=== PATIENT | female | born 1930 | race Caucasian/White ===

== ENCOUNTER 2017-09-17 18:15 | Emergency (ER) | payer MEDICARE, OTHER ==
[~2017-09-17] VITALS: Ht 152.4 cm; Wt 54.4 kg
[2017-09-17 18:15] VITALS: BP 192/91
[~2017-09-17 18:15] MED LIST: Lidocaine 1% 10mg/ml/Epi 0.005mg/ml 30ml vial INJ ONE
[2017-09-17] MEDS ORDERED: Acetaminophen 500mg (ES) tab ORAL ONE (18:30)
[2017-09-17 19:30] VITALS: BP 139/53
[2017-09-17 19:36] LABS: BASOPHILS % (AUTO) 0.9 % (0.0-2.0); EOSINOPHILS % (AUTO) 2.1 % (0.0-3.0); HEMATOCRIT 37.7 % (37.0-47.0); HEMOGLOBIN 12.1 G/DL (12.0-16.0); LYMPHOCYTES % (AUTO) 21.3 % (20.0-45.0); MEAN CORPUSCULAR VOLUME 83 FL (80-99); MONOCYTES % (AUTO) 9.8 % (1.0-10.0); PLATELET COUNT 243 K/UL (150-450); RED BLOOD COUNT 4.56 M/UL (4.20-5.40); RED CELL DISTRIBUTION WIDTH 13.7 % (11.6-14.8); WHITE BLOOD COUNT 8.3 K/UL (4.8-10.8)
[2017-09-17] MEDS ORDERED: Hydrogen Peroxide 473ml Bottle TOPIC ONE ×2 (19:41→20:00)
[2017-09-17 19:43] LABS: ANION GAP 6 mmol/L (5-15); BLOOD UREA NITROGEN 25 mg/dL (7-18); CALCIUM 9.2 MG/DL (8.5-10.1); CARBON DIOXIDE 29 MMOL/L (21-32); CHLORIDE 104 MMOL/L (98-107); CREATININE 1.1 MG/DL (0.55-1.30); POTASSIUM 4.7 MMOL/L (3.5-5.1); SODIUM 139 MMOL/L (136-145)
[2017-09-17 19:48] LABS: ALANINE AMINOTRANSFERASE 22 U/L (12-78); ALBUMIN 3.6 G/DL (3.4-5.0); ALKALINE PHOSPHATASE 103 U/L (46-116); ASPARTATE AMINO TRANSFERASE 18 U/L (15-37); BILIRUBIN,TOTAL 0.2 MG/DL (0.2-1.0)
--- NOTE | 2017-09-17 20:23 | Emergency Room Report ---
History of Present Illness General Chief Complaint: Head Injury Source: Patient, EMS Present Illness HPI Patient is an 87-year-old female who presented after increased pain to her head after a fall. Patient had the mechanical fall from standing position. Patient reports having fallen in recalling events. The patient was complaining of pain to her occiput as well as to her right knee and to her left elbow.The patient denies taking any blood thinners. Injury occurred just prior to arrival. Allergies: Coded Allergies: No Known Allergies (Unverified , 09/17/17) Patient History Past Medical History: HTN Reviewed Nursing Documentation: PMH: Agreed; PSxH: Agreed Nursing Documentation-PMH Past Medical History: No Stated History Review of Systems All Other Systems: negative except mentioned in HPI Physical Exam Vital Signs Date Time Temp Pulse Resp B/P (MAP) Pulse Ox O2 Delivery O2 Flow Rate FiO2 09/17/17 18:01 98.2 90 20 150/100 99 Room Air 98.2 Sp02 EP Interpretation: reviewed, normal General Appearance: normal inspection, alert, no apparent distress, GCS 15 Head: normocephalic, other - large occipital hematoma with pulsatile bleeding Eyes: normal eye exam, PERRL, EOMI, lids + conjunctiva normal, no hyphema, no racoon eyes ENT: normal ENT inspection, TMs + canals normal, oropharynx normal, no casiano signs Neck: trach midline, no bony tend, full range of motion without pain Respiratory: effort normal, no retractions, clear to auscultation, chest symmetrical, palpation of chest normal, speaking in full sentences Cardiovascular: regular rate, rhythm, no JVD Cardiovascular #2: 2+ radial (R), 2+ radial (L), 2+ dorsalis pedis (R), 2+ dorsalis pedis (L) Gastrointestinal: normal inspection, non-tender, non-distended, no rebound/ guarding, normal bowel sounds Genitourinary: normal inspection Musculoskeletal: normal inspection, normal ROM, non-tender, back normal Skin: normal palpation, other - left elbow abrasion and laceration Lymphatic: normal inspection Neurologic: oriented x3, sensory intact, motor strength/tone normal, normal speech Psychiatric: normal inspection, memory normal, mood normal, no suicidal/ homicidal ideation Medical Decision Making ER Course The patient presented after a fall.Differential diagnosis included was not limited to neck fracture, CVA, close head injury, syncopal episode, basilar ischemia. Labs Test 09/17/17 19:00 White Blood Count 8.3 K/UL (4.8-10.8) Red Blood Count 4.56 M/UL (4.20-5.40) Hemoglobin 12.1 G/DL (12.0-16.0) Hematocrit 37.7 % (37.0-47.0) Mean Corpuscular Volume 83 FL (80-99) Mean Corpuscular Hemoglobin 26.6 PG (27.0-31.0) Mean Corpuscular Hemoglobin Concent 32.2 G/DL (32.0-36.0) Red Cell Distribution Width 13.7 % (11.6-14.8) Platelet Count 243 K/UL (150-450) Mean Platelet Volume 6.0 FL (6.5-10.1) Neutrophils (%) (Auto) 66.0 % (45.0-75.0) Lymphocytes (%) (Auto) 21.3 % (20.0-45.0) Monocytes (%) (Auto) 9.8 % (1.0-10.0) Eosinophils (%) (Auto) 2.1 % (0.0-3.0) Basophils (%) (Auto) 0.9 % (0.0-2.0) Prothrombin Time 10.0 SEC (9.30-11.50) Prothromb Time International Ratio 1.0 (0.9-1.1) Activated Partial Thromboplast Time 25 SEC (23-33) Sodium Level 139 MMOL/L (136-145) Potassium Level 4.7 MMOL/L (3.5-5.1) Chloride Level 104 MMOL/L (98-107) Carbon Dioxide Level 29 MMOL/L (21-32) Anion Gap 6 mmol/L (5-15) Blood Urea Nitrogen 25 mg/dL (7-18) Creatinine 1.1 MG/DL (0.55-1.30) Estimat Glomerular Filtration Rate mL/min (>60) Glucose Level 109 MG/DL (74-106) Calcium Level 9.2 MG/DL (8.5-10.1) Total Bilirubin 0.2 MG/DL (0.2-1.0) Aspartate Amino Transf (AST/SGOT) 18 U/L (15-37) Alanine Aminotransferase (ALT/SGPT) 22 U/L (12-78) Alkaline Phosphatase 103 U/L (46-116) Troponin I 0.000 ng/mL (0.000-0.056) Total Protein 7.3 G/DL (6.4-8.2) Albumin 3.6 G/DL (3.4-5.0) Globulin 3.7 g/dL Albumin/Globulin Ratio 1.0 (1.0-2.7) Last Vital Signs Date Time Temp Pulse Resp B/P (MAP) Pulse Ox O2 Delivery O2 Flow Rate FiO2 09/17/17 18:27 98.2 09/17/17 18:15 79 20 192/91 99 Room Air Scripts No Active Prescriptions or Reported Meds Guille Langford MD September 17, 2017 20:23
--- NOTE | 2017-09-17 20:49 | Consultation ---
History of Present Illness General Date patient seen: September 17, 2017 Chief Complaint: Head Injury Reason for Consultation: bleeding head laceration Present Illness HPI 87F at home walking outside when she lost balance with walker and fell. hit occiput and came to ED for evaluation. no LOC per patient and family. bleeding laceration with hematoma noted in occiput. surgery called to assist with hemostasis Allergies: Coded Allergies: No Known Allergies (Unverified , 09/17/17) Medication History No Active Prescriptions or Reported Meds Patient History History Provided By: Patient, Family Member, EMS, PMD Healthcare decision maker Resuscitation status Advanced Directive on File Past Medical/Surgical History Past Medical/Surgical History: (1) Laceration of occipital scalp (2) Fall (3) Acute head injury Review of Systems All Other Systems: negative except mentioned in HPI Physical Exam General Appearance: no apparent distress Lines, tubes and drains: peripheral HEENT: other - blood/clots around scalp in hair. 1.5cm laceation with active bleeding noted. moderate hematoma, brusing Neck: normal alignment Respiratory/Chest: chest wall non-tender, no respiratory distress, no accessory muscle use Abdomen: non tender, soft, no organomegaly Extremities: non-tender Skin Exam: normal pigmentation Neurologic: alert, oriented x 3 Last 24 Hour Vital Signs Date Time Temp Pulse Resp B/P (MAP) Pulse Ox O2 Delivery O2 Flow Rate FiO2 09/17/17 19:30 75 24 139/53 99 Room Air 09/17/17 19:26 98.2 09/17/17 18:27 98.2 09/17/17 18:15 98.2 79 20 192/91 99 Room Air 98.2 09/17/17 18:01 98.2 90 20 150/100 99 Room Air 98.2 Laboratory Tests Test 09/17/17 19:00 White Blood Count 8.3 K/UL (4.8-10.8) Red Blood Count 4.56 M/UL (4.20-5.40) Hemoglobin 12.1 G/DL (12.0-16.0) Hematocrit 37.7 % (37.0-47.0) Mean Corpuscular Volume 83 FL (80-99) Mean Corpuscular Hemoglobin 26.6 PG (27.0-31.0) L Mean Corpuscular Hemoglobin Concent 32.2 G/DL (32.0-36.0) Red Cell Distribution Width 13.7 % (11.6-14.8) Platelet Count 243 K/UL (150-450) Mean Platelet Volume 6.0 FL (6.5-10.1) L Neutrophils (%) (Auto) 66.0 % (45.0-75.0) Lymphocytes (%) (Auto) 21.3 % (20.0-45.0) Monocytes (%) (Auto) 9.8 % (1.0-10.0) Eosinophils (%) (Auto) 2.1 % (0.0-3.0) Basophils (%) (Auto) 0.9 % (0.0-2.0) Prothrombin Time 10.0 SEC (9.30-11.50) Prothromb Time International Ratio 1.0 (0.9-1.1) Activated Partial Thromboplast Time 25 SEC (23-33) Sodium Level 139 MMOL/L (136-145) Potassium Level 4.7 MMOL/L (3.5-5.1) Chloride Level 104 MMOL/L (98-107) Carbon Dioxide Level 29 MMOL/L (21-32) Anion Gap 6 mmol/L (5-15) Blood Urea Nitrogen 25 mg/dL (7-18) H Creatinine 1.1 MG/DL (0.55-1.30) Estimat Glomerular Filtration Rate mL/min (>60) Glucose Level 109 MG/DL (74-106) H Calcium Level 9.2 MG/DL (8.5-10.1) Total Bilirubin 0.2 MG/DL (0.2-1.0) Aspartate Amino Transf (AST/SGOT) 18 U/L (15-37) Alanine Aminotransferase (ALT/SGPT) 22 U/L (12-78) Alkaline Phosphatase 103 U/L (46-116) Troponin I 0.000 ng/mL (0.000-0.056) Total Protein 7.3 G/DL (6.4-8.2) Albumin 3.6 G/DL (3.4-5.0) Globulin 3.7 g/dL Albumin/Globulin Ratio 1.0 (1.0-2.7) Height (Feet): 5 Weight (Pounds): 120 Assessment/Plan Problem List: (1) Laceration of occipital scalp Assessment & Plan: scalp laceration with arterial bleeding. hematoma. bruising. surgery called to assist with hemostasis. temporary hemostasis provided by ED physician but recurrent bleeding noted. see procedure report for details hemostasis obtained. wound clean. hematoma stable. okay to d/c from surgical standpoint needs to have sutures removed in 5 days. office info given to patient and family for follow up. thank you for allowing me to participate in JamesChristy Bola's care ICD Codes: S01.01XA - Laceration without foreign body of scalp, initial encounter SNOMED: [id number] Qualifiers: Qualified Codes: S01.01XA - Laceration without foreign body of scalp, initial encounter Status: stable Vadim Espinoza September 17, 2017 20:49
--- NOTE | 2017-09-17 20:57 | Operative Note - PDOC ---
Operative Note Operative Note Date of Operation/Procedure: September 17, 2017 Pre-op Diagnosis: scalp laceration with active hemorrhage Procedure: 1. hemostasis of scalp laceration hemorrhage 2. repair of occipital scalp laceration Post-op Diagnosis: same as pre-op Surgeon: lois Anesthesia: local Specimen: none Complications: none Condition: stable Fluids: n/a Estimated Blood Loss: minimal Drains: none Implant(s) used?: No Indications for Procedure 87F s/p fall with occipital scalp laceration with active hemorrhage. temporary hemostasis obtained by ED and surgery called for definitive hemostasis and laceration repair. consent obtained. procedure performed at bedside in ED Description of Procedure patient made comfortable at bedside. blood and clots in hair washed using hydrogen peroxide and saline. once laceration could be identified area around laceration noted to have moderate abrasion and hematoma. prior figure of 8 suture from ED physician removed as there was still oozing of bright red blood around laceration. hematoma evacuated and wound irrigated. arterial bleeding noted from superficial dermis and hemostasis obtained using electrocautery pen. once hemostasis obtained, wound irrigated and cleaned. surrounding area cleaned. laceration repaired in layers using 3-0 vicryl deep and 4-0 prolene for skin reapproximation. no dural penetration noted. dressing applied. patient tolerated procedure well Vadim Espinoza September 17, 2017 20:57
[2017-09-17] MEDS ORDERED: Cephalexin 500mg cap ORAL ONE (21:15)
[2017-09-17] MEDS ORDERED: CEPHALEXIN500 MG ORAL (21:27)
[2017-09-17 21:45] VITALS: BP 157/61
[2017-09-17 21:49] LABS: APPEARANCE,URINE CLOUDY; BILIRUBIN, URINE NEGATIVE (NEGATIVE); COLOR,URINE PALE YELLOW; GLUCOSE, URINE (UA) NEGATIVE (NEGATIVE); KETONES,URINE NEGATIVE (NEGATIVE); LEUKOCYTE ESTERASE ,URINE 2+ (NEGATIVE); NITRITE,URINE POSITIVE (NEGATIVE); PH,URINE 7 (4.5-8.0); PROTEIN,URINE 2+ (NEGATIVE); UROBILINOGEN,URINE NORMAL MG/DL (0.0-1.0)
--- NOTE | 2017-09-17 21:53 | Diagnostic Imaging Report ---
EXAM: XR Right Knee, 3 views CLINICAL HISTORY: PAIN TECHNIQUE: Three views of the right knee. COMPARISON: No relevant prior studies available. FINDINGS: Bones/joints: Unremarkable. No acute fracture. No dislocation. Soft tissues: Unremarkable. IMPRESSION: No acute findings.
--- NOTE | 2017-09-17 21:53 | Diagnostic Imaging Report ---
EXAM: XR Left Elbow Complete, 3 or More Views CLINICAL HISTORY: PAIN TECHNIQUE: Frontal, lateral and oblique views of the left elbow. COMPARISON: No relevant prior studies available. FINDINGS: Bones/joints: Unremarkable. No acute fracture. No dislocation. Soft tissues: Unremarkable. IMPRESSION: Normal left elbow x-rays.
--- NOTE | 2017-09-19 13:52 | Cardiology Report ---
APPROVED REPORT EKG Measurement Heart [id number] Normal sinus rhythm Normal ECG
== END 2017-09-17 21:45 | disposition home or self-care (01) ==
LOC: EDBD 18:15 → EMR 19:51
DX: S01.01XA Laceration without foreign body of scalp, initial encounter (principal); W19.XXXA Unspecified fall, initial encounter; Y92.9 Unspecified place or not applicable; I10 Essential (primary) hypertension
CPT/HCPCS: 36415; 70450; 72125; 80053; 81003; 84484; 85025; 85610; 85730; 93005; 99284